=== PATIENT | male | born 1940 | race Caucasian/White ===

== ENCOUNTER 2020-01-18 12:48 | Emergency (ER) | payer SELFPAY ==
[~2020-01-18] VITALS: Ht 170.2 cm; Wt 57.0 kg
[2020-01-18] MEDS ORDERED: ACETAMINOPHEN 325MG TABLET PO STA (13:27)
[2020-01-18] MEDS ORDERED: CEFTRIAXONE 1 G PREMIX 50 ML IV ONE (13:30)
[2020-01-18] MEDS ORDERED: SODIUM CHLORIDE 0.9% 1000ML BAG (SEPSIS BOLUS) IV ONE (13:30)
[2020-01-18 14:04] LABS: BASOPHILS % 0.5 % (0.0-2.0); EOSINOPHILS % 2.8 % (0.0-5.0); HEMATOCRIT. 39.3 % (42.0-52.0); HEMOGLOBIN. 13.1 g/dL (14.0-18.0); LYMPHOCYTES % 9.6 % (20.0-50.0); MEAN CORPUSCULAR HEMOGLOBIN 30.9 pg (28.0-32.0); MEAN CORPUSCULAR VOLUME 92.8 fL (80.0-94.0); MEAN PLATELET VOLUME 10.1 fl (7.4-10.4); MONOCYTES % 6.7 % (2.0-8.0); NEUTROPHILS % 80.4 % (40.0-76.0); PLATELET 278 x1000/uL (130-400); RED BLOOD CELL COUNT 4.24 mill/uL (4.7-6.1); RED CELL DISTRIBUTION WIDTH 15.3 % (11.6-14.6)
[2020-01-18 14:13] LABS: PROTHROMBIN TIME 10.6 sec (9.6-11.0)
[2020-01-18 14:18] LABS: CHLORIDE 105 mEq/L (98-107)
[2020-01-18 14:28] LABS: CREATINE KINASE 25 IU/L (39-308)
[2020-01-18 14:30] LABS: CREATINE KINASE MB FRACTION 1.2 ng/mL (0.5-3.6)
[2020-01-18 16:08] VITALS: BP 118/61
== END 2020-01-18 17:17 | disposition short-term general hospital (02) ==
LOC: ER 12:48 → CANBEDREQ 16:53 → ER 17:17
DX: J06.9 Acute upper respiratory infection, unspecified (principal); N39.0 Urinary tract infection, site not specified; E86.0 Dehydration; F03.90 Unspecified dementia, unspecified severity, without behavioral disturbance, psychotic disturbance, mood disturbance, and anxiety; Z88.6 Allergy status to analgesic agent; Z88.8 Allergy status to other drugs, medicaments and biological substances; Z87.891 Personal history of nicotine dependence
CPT/HCPCS: 36415; 51702; 71045; 80053; 82550; 82553; 83605; 83880; 84145; 84484; 85025; 85610; 87040; 93005; 96365; 99285; J0696; J7030